=== PATIENT | female | born 1955 | race Caucasian/White ===

== ENCOUNTER 2018-01-30 08:51 | Inpatient (IN) | payer OTHER ==
[~2018-01-30] VITALS: Ht 162.6 cm; Wt 59.0 kg
[~2018-01-30 08:51] MED LIST: ACETAMINOPHEN-1 EAC4 PO; ASPIR 8181 MG PO; BIOTIN2500 MCG PO; CALCIUM500 MG PO; CHANTIX1 EACH PO; DIAZEPAM10 MG PO; FIORICET1 EA; FLOVENT DISKUS50 MCG INH; HYDROCODON-ACE1 EAC9; IRON18 MG PO; LISINOPRIL10 MG PO; NASONEX17 GM; OMEPRAZOLE40 MG PO; PALGIC4 MG PO; PANTOPRAZOLE SO40 MG PO; PROAIR HFA INH8.5 GM; PROZAC40 MG PO; SOMA350 MG PO; TIZANIDINE HCL6 MG PO; TOPIRAMATE50 MG PO; TRAZODONE HCL150 MG PO; TRIAMTERENE-HC1 EAC2; TYLENOL; VAGIFEM10 MCG PO; VITAMIN D-32000 UNIT PO; ZORVOLEX PO; ZYRTEC10 M3 PO
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
[2018-01-30] MEDS ORDERED: TRAZODONE HCL100 MG PO (09:16)
[2018-01-30] MEDS ORDERED: PANTOPRAZOLE SO40 MG PO (09:16)
[2018-01-30 09:42] LABS: BASOPHILS % 0.3 % (0.0-1.0); EOSINOPHILS % 0.3 % (0.0-6.0); HEMOGLOBIN 13.6 g/dL (12.0-16.0); LYMPHOCYTES # (AUTO) 1.4 (1.0-3.2); LYMPHOCYTES % 10.6 % (18.0-39.1); MEAN CORPUSCULAR HEMOGLOBIN 30.9 pg (28-32); MEAN CORPUSCULAR VOLUME 90.9 fL (81-99); MONOCYTES # (AUTO) 0.8 (0.2-0.8); MONOCYTES % 5.8 % (4.4-11.3); NEUTROPHILS # (AUTO) 11.2 (2.1-6.9); NEUTROPHILS % 82.6 % (38.7-80.0); PLATELET COUNT 235 x10e3/uL (140-360); RED CELL DISTRIBUTION WIDTH 13.3 % (11.7-14.4)
[2018-01-30 09:59] LABS: ALKALINE PHOSPHATASE 97 IU/L (40-150); BLOOD UREA NITROGEN 11 mg/dL (7-26); BUN/CREATININE RATIO 15 (6-25); CALCIUM 9.5 mg/dL (8.4-10.2); CARBON DIOXIDE 28 mmol/L (22-29); CHLORIDE 101 mmol/L (98-107); CREATINE KINASE 109 IU/L (29-168); CREATININE, SERUM 0.74 mg/dL (0.57-1.11); EST GLOMERULAR FILTRATION RATE > 60 ML/MIN (60-); GLUCOSE 118 mg/dL (74-118); SODIUM 139 mmol/L (136-145)
[2018-01-30 10:03] LABS: ALANINE AMINOTRANSFERASE < 6 IU/L (0-55)
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
[2018-01-30 11:01] LABS: BILIRUBIN,URINE NEGATIVE (NEGATIVE); KETONES,URINE NEGATIVE (NEGATIVE); LEUKOCYTE ESTERASE ,URINE NEGATIVE (NEGATIVE); NITRITE,URINE NEGATIVE (NEGATIVE); PROTEIN,URINE DIPSTICK NEGATIVE (NEGATIVE); URINE UROBILINOGEN 0.2 mg/dL (0.2 - 1)
--- NOTE | 2018-01-30 11:01 | Diagnostic Imaging Report ---
PROCEDURE: A single AP view of the chest. COMPARISON: None. INDICATIONS: PASSED OUT FINDINGS: Lines/tubes: None. Lungs: The lungs are well inflated and clear. There is no evidence of pneumonia or pulmonary edema. Pleura: There is no pleural effusion or pneumothorax. Heart and mediastinum: The heart and the mediastinum are unremarkable. Bones: No acute bony abnormality. Degenerative changes of the thoracic spine. IMPRESSION: No acute radiographic abnormality. Dictated by: Naveen Sanford M.D. on 01/30/2018 at 11:01 Electronically approved by: Naveen Sanford M.D. on 01/30/2018 at 11:01
[2018-01-30 11:02] LABS: CLARITY,URINE CLEAR (CLEAR); COLOR,URINE YELLOW (YELLOW)
[2018-01-30 11:14] LABS: EPITHELIAL CELLS,URINE RARE /LPF; MUCUS,URINE RARE (RARE)
[2018-01-30] MEDS: KETOROLAC TROMETHAMINE 30 MG/ML VIAL IV PRN ×2 (11:56→20:03)
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
[2018-01-30 17:55] VITALS: BP 155/95
--- NOTE | 2018-01-30 19:05 | History and Physical ---
CHIEF COMPLAINT: The patient had episode of passing out early this morning. HISTORY OF PRESENT ILLNESS: A 62-year-old pleasant white female with past medical history of multiple medical problems, was admitted at [facility] ER today with the above complaints. As per the patient, this morning she woke up and she felt hot with sweating and then the patient woke up, climbed downstairs, and at that time she felt nauseous and then after some time she found herself on the floor of the kitchen. She woke up on her own, unwitnessed episode by anybody else in the house. The patient woke up, stood up by her own and felt headache and generalized weakness. The patient called her boss at work to inform him that she is not going to show up at work. The boss advised her to go to the hospital. Boss called the patient's sister and the patient was brought in to the hospital. At present, the patient is lying comfortably in bed in no apparent distress. No chest pain, no shortness of breath, no nausea, vomiting, diarrhea, no abdominal pain, no loss of consciousness, no palpitations, no fever, no abnormal bleeding, no witnessed seizures. Complains of headaches. PAST MEDICAL HISTORY: 1. COPD. 2. Chronic fatigue syndrome. 3. Chronic low back pain. 4. Chronic cervical pain. 5. Status post right cerebral and carotid aneurysm stent in 2013. MEDICATIONS: Protonix 40 mg p.o. daily, 10 mg p.o. daily, ProAir HFA 2 puffs q.6 h. p.r.n. ALLERGIES: ORAL AND IV CONTRAST DYE. PAST SURGICAL HISTORY: 1. Hysterectomy. 2. Multiple breast biopsies, all benign, as per the patient. 3. Colon resection. 4. Right-sided/carotid aneurysm stents. SOCIAL HISTORY: Smoked 30+ years, quit smoking 2 months back. No alcohol, no illicit drug use. Lives with family. REVIEW OF SYSTEMS: As per HPI. PHYSICAL EXAMINATION GENERAL: The patient is alert, oriented x3 and in no apparent distress, playing video game on her I-pad. No chest pain. VITAL SIGNS: Temperature 98, pulse 70 per minute, respirations ___, blood pressure 127/90, saturation 96%. SKIN: No cyanosis. No icterus. No pallor. HEENT: Normocephalic, atraumatic. PERRLA. NECK: Soft and supple. No JVD. No thyromegaly or lymphadenopathy. LUNGS: Air entry bilaterally equal. No rales or rhonchi. HEART: S1 and S2 normal. No gallop or rub. ABDOMEN: Soft and nontender. Bowel sounds positive. UX DEVELOPER: Alert, awake and oriented x3. No focal deficits. EXTREMITIES: No cyanosis, clubbing or edema. Peripheral pulses are present. No calf pain. LABORATORY DATA: On admission to the ER, white count 13.5, hemoglobin 13.6, hematocrit 40, platelets 235,000. Sodium 139, potassium 4.0, chloride 101, bicarb 28, BUN 11, creatinine 0.7, glucose 118. LFTs noted. Urine shows blood 2+, RBCs 11-20. Chest x-ray shows no acute radiographic abnormalities. CT of brain showed no acute abnormalities, distal right M1 MCA segment stent in place. No change from previous head CT. CT of C-spine shows no cervical spine fracture or acute subluxation, degenerative changes with multilevel foraminal stenosis and advanced arthropathy, right cervical ICA and neurovascular stent in place, multinodular thyroid gland. ASSESSMENT 1. Syncope. 2. History of chronic obstructive pulmonary disease. 3. Chronic fatigue syndrome. 4. Chronic back pain. 5. Acid reflux. PLAN: Admit the patient to medical telemetry. Neurologic consultation with Dr. Singer. She has already seen the patient. Cardiology consultation with Dr. Etelvina Pollard. Will get 2D echo, carotid Doppler. Further care and treatment while the patient is in the hospital. Discussed win the patient in detail. Job#: [id number]
[2018-01-30 20:00] VITALS: BP 154/81
[2018-01-30 21:50] VITALS: BP 154/81
[2018-01-31] VITALS: BP 128/70
[2018-01-31] MEDS: KETOROLAC TROMETHAMINE 30 MG/ML VIAL IV PRN ×3 (03:15→16:55)
[2018-01-31 04:00] VITALS: BP 140/77
[2018-01-31 07:05] LABS: BASOPHILS # (AUTO) 0.1 (0.0-0.1); BASOPHILS % 0.8 % (0.0-1.0); EOSINOPHILS # (AUTO) 0.2 (0.0-0.4); EOSINOPHILS % 2.6 % (0.0-6.0); HEMATOCRIT 37.3 % (34.2-44.1); HEMOGLOBIN 12.4 g/dL (12.0-16.0); LYMPHOCYTES # (AUTO) 2.1 (1.0-3.2); LYMPHOCYTES % 27.4 % (18.0-39.1); MEAN CORPUSCULAR HEMOGLOBIN 30.6 pg (28-32); MEAN CORPUSCULAR HGB CONC 33.2 g/dL (31-35); MEAN CORPUSCULAR VOLUME 92.1 fL (81-99); MONOCYTES # (AUTO) 0.9 (0.2-0.8); MONOCYTES % 11.3 % (4.4-11.3); NEUTROPHILS # (AUTO) 4.4 (2.1-6.9); NEUTROPHILS % 57.4 % (38.7-80.0); PLATELET COUNT 222 x10e3/uL (140-360); RED BLOOD COUNT 4.05 x10e6/uL (3.6-5.1); RED CELL DISTRIBUTION WIDTH 13.2 % (11.7-14.4)
[2018-01-31 08:05] VITALS: BP 123/72
[2018-01-31 08:26] VITALS: BP 123/72
[2018-01-31] MEDS: PANTOPRAZOLE SOD 40 MG TABEC PO SCH ×2 (08:32→16:57)
[2018-01-31] MEDS ORDERED: ASPIRIN 81 MG ENTERIC COATED PO SCH (09:00)
[2018-01-31] MEDS ORDERED: LORATADINE 10 MG TAB PO SCH (09:00)
--- NOTE | 2018-01-31 12:14 | Consultation ---
DATE OF CONSULTATION: January 30, 2018 HISTORY OF PRESENT ILLNESS: Ms. Cruz is a 62-year-old woman with past medical history significant for chronic neck and low back pain secondary to degenerative disk disease who presented to the emergency center at [facility] on January 30, 2018 after experiencing a syncopal event earlier in the day. As stated above, the patient reports a long history of chronic neck and low back pain secondary to degenerative disk disease. The pain has progressively worsened over the past 3 weeks, especially the past 2 days. As a result of her worsening pain, the patient's sleep has been poor over the past few weeks. Last night she took morphine 30 mg by mouth once at approximately 11 p.m. in a effort to control her pain so she could get a full night's sleep. At approximately 5:50 in the morning on the day of admission, the patient was awakened by her dog who wanted to go outside. As soon as she stood from the bed, the patient became flushed, diaphoretic, clammy, and lightheaded. Ms. Cruz endorses nausea at this time as well. The patient proceeded down the stairs to let her dog into the backyard. She then sat on a swing close to the back door until she felt better. After sitting outside for several minutes, the patient decided she was well enough to proceed into the house. Ms. Cruz reports her next thought was "What was that loud sound?" Ms. Cruz quickly realized she was laying on the floor of her dining room looking at the legs of her dining room chairs. The patient does not recall standing from the swing outside, traveling the 2 feet or so to her back door, opening her back door, stepping inside her home, or closing the back door. Ms. Cruz believes she was unconscious for only a few seconds. Other than being confused as to why she was on the floor, the patient was not disoriented when she regained consciousness. The patient does not report tongue biting or bladder/bowel incontinence. She does report pain over the right side of the head where she fell. She endorses neck and back pain, but those are chronic. There were no bruises or abrasions on her trunk or any of her extremities. After regaining consciousness, the patient proceeded up the stairs to lay down on her bed. She notified her employer she would not be able to come to work. Her employer in turn notified her sister about Ms. Cruz's syncopal event, and her sister then drove to the patient's house and brought her to the emergency center at [facility] for further evaluation. Upon arrival in the emergency center, the patient was neurologically intact. Routine blood work was largely unremarkable. A CT of the brain without contrast was performed. It did not show evidence of recent large territorial ischemia, hemorrhage, mass or mass affect. Ms. Cruz will be admitted to [facility] for further evaluation and treatment. The patient does report a prior history of fainting spells. She states this led to a diagnosis of chronic fatigue syndrome. She further states her blood pressure medications were discontinued at this time. There is no known personal or family history of seizure disorder. REVIEW OF SYSTEMS: Flushing, clammy, diaphoretic, nausea, loss of consciousness, neck pain, low back pain. Otherwise, the 12-point review of systems is negative. PAST MEDICAL HISTORY: Prior history of hypertension, but no longer taking antihypertensive medications. Chronic fatigue syndrome. Cerebral artery aneurysm, status post repair. Right carotid artery atherosclerosis. Diverticulitis. PAST SURGICAL HISTORY: Partial hysterectomy, colectomy, carotid stent placement, repair of cerebral artery aneurysm. PAST HOSPITALIZATIONS: Child once, for surgeries and procedures as listed above. FAMILY HISTORY: The patient's paternal and maternal grandparents are . The patient's maternal grandmother from breast cancer. The patient's father is . He had prostate cancer, hypertension, glaucoma, and macular degeneration. The patient's mother is alive. She has hypertension, coronary artery disease, diverticulitis, and gallstones. The patient has 3 siblings, all of whom are living. The brother has degenerative disk disease. A sister has diverticulitis. A second sister has diverticulitis as well. The patient has one child, a son, who is healthy. SOCIAL HISTORY: The patient is . Ms. Cruz graduated high school and attending some college. She works in a day care. The patient quit smoking 3 weeks ago. She began smoking in her teens and smoked 1/2 pack of cigarettes per day. The patient does not report current alcohol use. She endorses remote use of marijuana, but does not report current recreational drug use. HOME MEDICATIONS: ProAir inhaler 2 puffs as needed for shortness of breath, Zyrtec 10 mg per mouth daily, Nasonex, Protonix 40 mg by mouth twice daily, trazodone 100 mg by mouth at bedtime, Tylenol 500 mg q.4 h. as needed for pain. ALLERGIES: NO KNOWN DRUG ALLERGIES. NO KNOWN FOOD ALLERGIES. NO KNOWN ALLERGY TO LATEX. THE PATIENT IS ALLERGIC TO IODINATED CONTRAST. PHYSICAL EXAMINATION VITAL SIGNS: Height 64 inches, weight 130 pounds, BMI 22.3 kg/meter squared, blood pressure 141/95 mmHg, pulse 76 beats per minute, respiratory rate 16 breaths per minute, oxygen saturation 96% on room air. GENERAL: The patient is awake and alert. Does not appear distressed. HEENT: Normocephalic and atraumatic. Pupils are equal, round and reactive to light. Moist mucous membranes. NECK: Supple. No appreciable thyromegaly. No appreciable carotid bruits. CARDIOVASCULAR: S1 and S2. Regular rate and rhythm. No murmurs, rubs or gallops. RESPIRATORY: Clear to auscultation bilaterally. No wheezes, rhonchi or rales. EXTREMITIES: The skin is warm and dry. No clubbing, cyanosis or edema. The posterior tibial and dorsalis pedis pulses are 2+ and symmetric. SKIN: No rashes or lesions. NEUROLOGIC: Memory/attention: The patient is awake and alert. Oriented to person, place, time, and situation. CRANIAL NERVES: Cranial nerve I: Not tested. Cranial nerves II, III, IV, : Pupils are equal and round, react briskly to light (from 4 mm to 2 mm). Extraocular movements intact. No nystagmus. Cranial nerve V: Sensation to light touch and pinprick is intact in the bilateral V1 through V3 distributions. Strength of the temporalis and masseter muscles is within normal limits. Cranial nerve VII: The face is symmetric, as are all facial movements. Strength is within normal limits. Cranial nerve VIII: Hearing is intact to finger rub bilaterally. Cranial nerve IX and X: The soft palate elevates equally and symmetrically. Cranial nerve XI: Normal strength of the bilateral sternocleidomastoid and trapezius muscles. Cranial nerve XII: The tongue protrudes midline and moves symmetrically from side to side. STRENGTH: Bulk is normal, and strength is 5/5 in the bilateral deltoids, biceps, triceps, wrist flexors and extensors, finger flexors and extensors, intrinsic hand muscles, hip flexors, knee flexors and extensors, ankle dorsiflexion and plantar flexion, and intrinsic foot muscles. Tone is normal. DTRs: Deep tendon reflexes are 2+ and symmetric at the triceps, biceps, brachioradialis, patellas, and Achilles. Plantar responses are flexor bilaterally. Absent clonus. SENSATION: Intact to light touch and pinprick in both arms and both legs. CEREBELLAR: Osalgt-gudy-zwtoln and heel-irving movements are intact without dysmetria or other impairment. Rapid alternating movements are intact. GAIT: Deferred. SPEECH: Spontaneous speech is normal without appreciable dysarthria or aphasia. Repetition is intact. INVOLUNTARY MOVEMENTS: None. PRONATOR DRIFT: None. LABORATORY DATA: Sodium 139, potassium 4.0, chloride 101, carbon dioxide 28, anion gap 14, BUN 11, creatinine 0.74, estimated GFR greater than 60, BUN to creatinine ratio 15, glucose 118, calcium 9.5, total bilirubin 0.6, AST 14, ALT less than 6, alkaline phosphatase 97, total protein 7.9, albumin 4.0, globulin 3.9, albumin to globulin ratio 1.0, creatinine kinase 109, CK MB 0.70, troponin I is 0.005. DIAGNOSTIC STUDIES: CT of the cervical spine without contrast 01/30/2018: No cervical spinal fracture or acute subluxation. Degenerative changes with multilevel foraminal stenosis and advanced facet arthrosis. Right cervical internal carotid artery endovascular stent in place. Multinodular thyroid gland with nodules which have increased in size since 2016. Recommend followup thyroid ultrasound if not recently performed. CT brain without contrast 01/30/2018: No acute ischemia, hemorrhage, mass or mass affect. Distal right M1 MCA segment stent is in place. Chest x-ray 01/30/2018: No acute radiographic abnormalities. ASSESSMENT AND PLAN: Ms. Cruz is a 62-year-old woman with past medical history as stated above who presents to [facility] following a syncopal event of uncertain etiology. The patient's neurological examination is nonfocal. Her laboratory data and diagnostic studies have been reviewed and are documented above. Based on the history provided by the patient, Ms. Cruz did experience a syncopal event. There is very little concern for seizure. An evaluation for syncope is recommended. Recommendations are as follows: 1. The patient will be admitted to [facility] with telemetry to evaluate for an underlying cardiac dysrhythmia. 2. An echocardiogram will be ordered to evaluate the structural and functional integrity of the patient's heart. 3. Bilateral carotid ultrasound with Doppler will be ordered to evaluate for restricted blood flow to the brain as the cause of syncope. 4. Orthostatic vital signs. 5. Defer treatment of the remaining medical comorbidities to the primary service. Thank you for this consultation. I will continue to follow the patient while she remains in the hospital. Time spent: 70 minutes. Job#: [id number] GH GIANNI
--- NOTE | 2018-01-31 14:28 | Consultation ---
DATE OF CONSULTATION: January 31, 2018 CARDIOLOGY CONSULTATION REQUESTING PHYSICIAN: Dr. Krishan Duff. REASON FOR CONSULTATION: Syncope. HISTORY OF PRESENT ILLNESS: This is a 62-year-old woman with a history of hypertension, chronic neck and back pain, and chronic fatigue syndrome, who presented with complaints of syncope. The patient reports that she felt hot and flushed this morning when she woke up. She went down the stairs to let her dog out but, while coming down the stairs, felt nauseated and as if she was losing her balance. She got outside, but when she got up to walk back inside, she woke up on the kitchen floor. She denied any preceding chest pain or shortness of breath. This was unwitnessed, but she does endorse palpitations. She denied any edema, orthopnea or PND. Due to this, she presented to the ER for further evaluation. REVIEW OF SYSTEMS: Negative except as per HPI. PAST MEDICAL HISTORY 1. Hypertension. 2. COPD. 3. Chronic fatigue syndrome. 4. Chronic neck and back pain. 5. History of cerebral and carotid aneurysm, status post repair. PAST SURGICAL HISTORY 1. Partial colectomy for diverticulosis. 2. Hysterectomy. 3. Cerebral and carotid aneurysm repairs. ALLERGIES: IODINE. MEDICATIONS: Please see medication list. SOCIAL HISTORY: She recently quit smoking. She smoked 1 pack a day for over 40 years. FAMILY HISTORY: Noncontributory. PHYSICAL EXAMINATION VITAL SIGNS: Temperature 96.7 degrees, pulse 67, respiratory rate 20, blood pressure 123/72, oxygen saturation 95% on room air. GENERAL: A well-developed, well-nourished woman in no acute distress. HEENT: Normocephalic, atraumatic. Pupils equal, no scleral icterus. NECK: Supple. No thyromegaly or cervical lymphadenopathy, no carotid bruits. LUNGS: Clear to auscultation bilaterally. No wheezes or crackles. CARDIOVASCULAR: Normal rate, regular rhythm. No murmur. Normal S1 and S2. ABDOMEN: Soft, nontender. EXTREMITIES: No edema. NEURO: Nonfocal exam. LABS: WBC 7.67, hemoglobin 12.4, hematocrit 37.3, platelets 222. Sodium 139, potassium 4, chloride 101, CO2 28, BUN 11, creatinine 0.74. EKG: Normal sinus rhythm. Possible left atrial enlargement. CT BRAIN: No acute abnormalities. Distal right M1 MCA segment stent in place. No changes from the previous head CT of April 12, 2017. CHEST X-RAY: No acute radiographic abnormality. IMPRESSION 1. Syncope. 2. Hypertension. 3. History of cerebral and carotid aneurysm stents. 4. Chronic fatigue syndrome. 5. Chronic neck and back pain. RECOMMENDATIONS: Echocardiogram and carotid Dopplers have been ordered. We will review the images. Monitor patient on telemetry to evaluate for any arrhythmias that could explain her symptoms. Check orthostatic vitals. Thank you for this consult. We will continue to follow. Job#: [id number] EV
--- NOTE | 2018-03-06 19:34 | Discharge Summary ---
CHIEF COMPLAINT: Syncope and collapse. FINAL DIAGNOSES 1. Syncope. 2. Chronic back pain. 3. Chronic obstructive pulmonary disease. DISPOSITION: Home. This 62-year-old female, with history of multiple medical problems, presented to the ER, having issue of an episode of passing out the morning of admission. States that she woke up feeling hot, sweating. Went downstairs and felt somewhat nauseated. After a period of time, she found herself on the floor of the kitchen. Woke up on her own. The episode was unwitnessed. Post episode, she had a headache and complained of generalized weakness. Brought to the ER. Patient was evaluated in the ER. Noted to have a temperature of 98, pulse 70, BP 127/90. Chest was unremarkable. Heart was unremarkable. Underwent studies and evaluation in the ER. Admitted to the facility for evaluation regarding issues of syncope. History of chronic obstructive pulmonary disease, chronic fatigue syndrome, chronic back pain, acid reflux. Will be obtaining a neurology follow and a cardiology follow. From a neurology standpoint, following her admission to the floor, she was reviewed by Dr. Singer. Following her evaluations, impression was made of a single episode of uncertain etiology. Neurological examination has been nonfocal. States that there is very little concern for seizure. She was on the med/surg floor receiving a cardiac diet. Vital signs were stable. She was on IV fluids and receiving aspirin 81 mg daily. Laboratory studies were showing stable electrolytes, stable kidney functions, glucose 118. CBC was stable. She was undergoing her workup. Her daily medications were then being applied. Underwent review by Dr. Singer. She was cleared for discharge and released on 01/31/2018 to home in stable condition. EKG showed normal sinus rhythm, possible left atrial enlargement. Echocardiogram revealed ejection fraction of approximately 50%. No pericardial effusion. Carotid studies showed no hemodynamically significant stenosis in the carotid system bilaterally. She was released home. Placed on a cardiac diet. No equipment or supplies necessary. No drains or Sánchez needed. Activity level is as tolerated. She will be following up with me in my office in the next 3 to 5 days. She will be returning to Dr. Singer's office as needed. She will be continued on: 1. ProAir HFA inhaler, inhalation every 6 to 8 hours as needed. 2. Zyrtec 10 mg daily. 3. Nasonex 17-gram spray daily as needed. 4. Protonix 40 mg twice a day. 5. Trazodone 100 mg nightly. 6. Tylenol 500 mg every 4 hours as needed for pain. If she has any continued syncopal episodes, she will be contacting me in my office immediately or she will be reporting back to the emergency room. Dictated by: ORBE Tomas JENNIFER HARVEY MD Job#: [id number]
== END 2018-01-31 17:48 | disposition home or self-care (01) | DRG 312 ==
LOC: ER 08:51 → ERHOLD 13:39 → MED/SURG 16:39
PROVIDERS: ADMIT Internal Medicine; ATTEND Internal Medicine
DX: R55 Syncope and collapse (principal); J44.9 Chronic obstructive pulmonary disease, unspecified; I10 Essential (primary) hypertension; R53.82 Chronic fatigue, unspecified; Z86.79 Personal history of other diseases of the circulatory system; M54.5 Low back pain; M50.30 Other cervical disc degeneration, unspecified cervical region; K21.9 Gastro-esophageal reflux disease without esophagitis
CPT/HCPCS: 36415; 70450; 71045; 72125; 80053; 81001; 82550; 82553; 84484; 85025; 93005; 93306; 93880; 97139; 99284; J1885

== ENCOUNTER → 2018-09-30 | Outpatient (CLI) | payer OTHER ==
[~2018-09-30] MED LIST changes: +CYCLOBENZAPRINE10 MG PO; +FLUTICASONE PRO16 GM; +LOSARTAN POTAS100 MG PO; +NEXIUM20 MG PO; +NORCO 10-325 T1 EACH PO; +TRAZODONE HCL100 MG PO; +TRAZODONE HCL50 MG PO
--- NOTE | 2018-10-01 08:47 | Diagnostic Imaging Report ---
#[id number] - MGSCRBIL #BILATERAL DIGITAL SCREENING MAMMOGRAM WITH CAD: 09/30/2018 CLINICAL: Routine screening. Comparison is made to exams dated: 06/07/2017, 10/12/2015 and 01/07/2013 mammogram - [facility]. Current study contains 4 films. The tissue of both breasts is heterogeneously dense. This may lower the sensitivity of mammography. Current study was also evaluated with a Computer Aided Detection (CAD) system. There are benign calcifications in both breasts. There also are benign densities in both breasts that are unchanged compared compared to multiple prior studies. Additionally there are post operative findings in both breasts with multiple scar markers present. No significant masses, calcifications, or other findings are seen in either breast. There has been no significant interval change. IMPRESSION: BENIGN There is no mammographic evidence of malignancy. A 1 year screening mammogram is recommended. The patient will be notified by letter of the results. Carlo King Jr., D.O. cw/:09/30/2018 11:40:41 Cloth Reeler: Donya CONRAD(R)(M), [facility] letter sent: Compared to Prior B9 Mammogram BI-RADS: 2 Benign
== END ==
LOC: MAMMO 09:32
PROVIDERS: ATTEND Internal Medicine
DX: Z12.31 Encounter for screening mammogram for malignant neoplasm of breast (principal)
CPT/HCPCS: 77067

== ENCOUNTER → 2018-10-15 | Outpatient (CLI) | payer OTHER ==
--- NOTE | 2018-10-15 13:50 | Diagnostic Imaging Report ---
EXAM: CT Chest WITHOUT contrast INDICATION: Smoker, shortness of breath, chest tightness COMPARISON: None. TECHNIQUE: The Chest was scanned utilizing a multidetector helical scanner without the use of IV contrast. Coronal and sagittal reformations were obtained. IV CONTRAST: None COMPLICATIONS: None RADIATION DOSE: Total DLP: 308 mGy*cm Estimated effective dose: (DLP x 0.015 x size factor) mSv CTDIvol has been reviewed. It is below the limits set by the Radiation Protocol Committee (RPC). Appropriate CT dose reduction techniques were utilized. FINDINGS: Lines and Tubes: None. Lower Neck: Bilateral thyroid nodules. Heart and Great Vessels: The aorta and main pulmonary artery measure 37 and 28 mm. respectively. No pericardial effusion. Mild coronary vascular calcifications. Lymph Nodes: Small mediastinal lymph nodes not distinctly enlarged by size criteria. The hilar regions are sub-optimally evaluated given lack of IV contrast. Lungs: Mild to moderate biapical scarring with no pneumothorax or pleural effusion. Mild atelectasis. Trachea and central bronchi are unremarkable. Minimal centrilobular emphysematous change noted. 4 mm groundglass nodule right upper lobe series 3 image 34 4-mm subpleural nodule right image 84 2-mm groundglass nodule left upper lobe series 3 image 38 Upper abdomen: No acute findings. Bones and Soft Tissues: No acute findings. IMPRESSION: 1. Minimal centrilobular emphysematous changes with a few tiny pulmonary nodules as above. One year follow-up. 2. Thyroid nodules. Ultrasound recommended. Signed by: Dr. Fran Escobar MD on 10/15/2018 1:46 PM
== END ==
LOC: CT 09:39
PROVIDERS: ATTEND Internal Medicine
DX: Z12.2 Encounter for screening for malignant neoplasm of respiratory organs (principal); Z87.891 Personal history of nicotine dependence
CPT/HCPCS: 71250

== ENCOUNTER → 2018-10-16 | Day surgery (SDC) | payer OTHER ==
[2018-10-15 11:20] LABS: BASOPHILS # (AUTO) 0.1 (0.0-0.1); BASOPHILS % 0.8 % (0.0-1.0); EOSINOPHILS # (AUTO) 0.3 (0.0-0.4); EOSINOPHILS % 4.2 % (0.0-6.0); HEMATOCRIT 40.4 % (34.2-44.1); HEMOGLOBIN 13.3 g/dL (12.0-16.0); LYMPHOCYTES # (AUTO) 3.5 (1.0-3.2); LYMPHOCYTES % 46.5 % (18.0-39.1); MEAN CORPUSCULAR HEMOGLOBIN 30.2 pg (28-32); MEAN CORPUSCULAR HGB CONC 32.9 g/dL (31-35); MEAN CORPUSCULAR VOLUME 91.6 fL (81-99); MONOCYTES # (AUTO) 0.6 (0.2-0.8); MONOCYTES % 7.8 % (4.4-11.3); NEUTROPHILS % 40.2 % (38.7-80.0); PLATELET COUNT 240 x10e3/uL (140-360); RED BLOOD COUNT 4.41 x10e6/uL (3.6-5.1); RED CELL DISTRIBUTION WIDTH 12.9 % (11.7-14.4)
[2018-10-15 11:31] LABS: INR 0.82; PROTHROMBIN TIME 12.1 seconds (11.9-14.5)
[2018-10-15 11:40] LABS: ALANINE AMINOTRANSFERASE 7 IU/L (0-55); ALBUMIN/GLOBULIN RATIO 1.1 (0.8-2.0); ALKALINE PHOSPHATASE 103 IU/L (40-150); ANION GAP 13.6 mmol/L (8-16); BLOOD UREA NITROGEN 14 mg/dL (7-26); BUN/CREATININE RATIO 18 (6-25); CALCIUM 9.6 mg/dL (8.4-10.2); CARBON DIOXIDE 27 mmol/L (22-29); CHLORIDE 105 mmol/L (98-107); CREATININE, SERUM 0.76 mg/dL (0.57-1.11); EST GLOMERULAR FILTRATION RATE > 60 ML/MIN (60-); GLUCOSE 90 mg/dL (74-118); POTASSIUM 4.6 mmol/L (3.5-5.1); SODIUM 141 mmol/L (136-145)
[~2018-10-16] VITALS: Ht 162.6 cm; Wt 65.8 kg
[~2018-10-16] MED LIST changes: +BENZOCAINE 20% SPR 60 ML CAN ONE; +FENTANYL CITRATE/PF 100MCG/2 ML INJ ONE; +LIDOCAINE HCL 2% LOCAL INJ 5 ML SDV VIAL INJ ONE; +MIDAZOLAM HCL 2 MG/2 ML VIAL ONE; +PROPOFOL IV EMULSION 10 MG/ML 20 ML VIAL ONE; +SODIUM CHLORIDE 0.9% 1000ML 1,000 ML ONE
--- OUTSIDE RECORDS SUMMARY | 2018-10-16 06:28 | XMS REPORT | Clinical Summary ---
Author Author [facility] Address Unknown Phone Unavailable Care Team Providers Care Publishing Director Name Role Phone Stephan Armenta DO PCP Allergies Comments Active Allergy Reactions Severity Noted Date IV iodine Iodine Anaphylaxis High 02/16/2017 Medications End Date Status Medication Sig Dispensed Refills Start Date Active acetaminophen-codeine Take 1 tablet 0 (TYLENOL WITH CODEINE #4) by mouth 300-60 mg per tablet every 4 (four) hours as needed for moderate pain. Active pantoprazole (PROTONIX) Take 40 mg by 0 40 MG EC tablet mouth 2 (two) times a day. Active ferrous sulfate 325 (65 Take 325 mg 0 FE) MG tablet by mouth 3 (three) times a day with meals. Active tiZANidine (ZANAFLEX) 4 Take 4 mg by 0 MG tablet mouth every 6 (six) hours as needed for muscle spasms. Active diazePAM (VALIUM) 5 MG Take 5 mg by 0 tablet mouth 2 (two) times a day. Active Problems Not on file Social History Date Tobacco Use Types Packs/Day Years Used Heavy Tobacco Smoker 1 40 Tobacco Cessation: Ready to Quit: No; Counseling Given: Yes Alcohol Use Drinks/Week oz/Week Comments No Sex Assigned at Date Recorded Not on file Industry Job Start Date Occupation Not on file Not on file Not on file Travel End Travel History Travel Start No recent travel history available. Last Filed Vital Signs Not on file Plan of Treatment Health Maintenance Due Date Last Done Comments CERVICAL CANCER SCREENING 1977 BREAST CANCER SCREENING 2006 COLON CANCER SCREENING 2006 SHINGRIX VACCINE (1 of 2) 2006 ZOSTER VACCINE 2016 INFLUENZA VACCINE 06/11/2018 Results Not on fileafter 10/15/2017 Insurance Payer Benefit Subscriber ID Type Phone Address Plan / Group TPL TPL-MED-DA xxxxxxxxxx TPL TA FRAGA EXCHANGE FRAGA xxxxxxxxxx Exchange [employer] E EXCHANGE Advance Directives Patient has advance care planning documents on file. For more information, amparo manley contact: Mani Narayan [address] [place] [address]
--- OUTSIDE RECORDS SUMMARY | 2018-10-16 06:28 | XMS REPORT ---
Author Author [facility] Address Unknown Phone Unavailable Care Team Providers Care Intelligence Operations Specialist Name Role Phone JENNIFER HARVEY Unavailable Unavailable Florence TAYLOR Unavailable Unavailable Problems This patient has no known problems. Allergies, Adverse Reactions, Alerts This patient has no known allergies or adverse reactions. Medications This patient has no known medications. Results Test Description Test Time Test Comments Text Results Atomic Results Result Comments CT CHEST WO 2018-10-15 13:42:00 [place] [address] Patient Name: CURT APRTIDA MR #: [id number] : 1955 Age/Sex: 63/F Req #: [id number] Adm Physician: Ordered by: JENNIFER HARVEY MD Report #: [id number] Location: CT Room/Bed: Procedure: [id number] CT/CT CHEST WO Exam Date: 10/15/18 Exam Time: 1020 REPORT STATUS: Signed EXAM: CT Chest WITHOUT contrast INDICATION: Smoker, shortness of breath, chest tightness COMPARISON: None. TECHNIQUE: The Chest was scanned utilizing a multidetector helical scanner without the use of IV contrast. Coronal and sagittal reformations were obtained. IV CONTRAST: None COMPLICATIONS: None RADIATION DOSE: Total DLP: 308 mGy*cm Estimated effective dose: (DLP x 0.015 x size factor) mSv CTDIvol has been reviewed. It is below the limits set by the Radiation Protocol Committee (RPC). Appropriate CT dose reduction techniques were utilized. FINDINGS: Lines and Tubes: None. Lower Neck: Bilateral thyroid nodules. Heart and Great Vessels: The aorta and main pulmonary artery measure 37 and 28 mm. respectively. No pericardial effusion. Mild coronary vascular calcifications. Lymph Nodes: Small mediastinal lymph nodes not distinctly enlarged by size criteria. The hilar regions are sub-optimally evaluated given lack of IV contrast. Lungs: Mild to moderate biapical scarring with no pneumothorax or pleural effusion. Mild atelectasis. Trachea and central bronchi are unremarkable. Minimal centrilobular emphysematous change noted. 4 mm groundglass nodule right upper lobe series 3 image 34 4-mm subpleural nodule right image 84 2-mm groundglass nodule left upper lobe series 3 image 38 Upper abdomen: No acute findings. Bones and Soft Tissues: No acute findings. IMPRESSION: 1. Minimal centrilobular emphysematous changes with a few tiny pulmonary nodules as above. One year follow-up. 2. Thyroid nodules. Ultrasound recommended. Signed by: Dr. Sabrina Escobar MD on 10/15/2018 1:46 PM Dictated By: SABRINA ESCOBAR MD 1346 Transcribed By: JACQUELINE on 10/15/18 1346 COPY TO: JENNIFER HARVEY MD MAMMOGRAPHY DIGITAL SCR BILAT 2018-09-30 10:14:00 [place] [address] Patient Name: CURT PARTIDA MR #: [id number] : 1955 Age/Sex: 63/F Req #: [id number] Adm Physician: Ordered by: JENNIFER HARVEY MD Report #: [id number] Location: [facility] Room/Bed: Procedure: [id number] MG/MAMMOGRAPHY DIGITAL SCR BILAT Exam Date: 09/30/18 Exam Time: 0936 REPORT STATUS: Signed #[id number] - [id number] #BILATERAL DIGITAL SCREENING MAMMOGRAM WITH CAD: 09/30/2018 CLINICAL: Routine screening. Comparison is made to exams dated: 06/07/2017, 10/12/2015 and 01/07/2013 mammogram - [facility]. Current study contains 4 films. The tissue of both breasts is heterogeneously dense. This may lower the sensitivity of mammography. Current study was also evaluated with a Computer Aided Detection (CAD) system. There are benign calcifications in both breasts. There also are benign densities in both breasts that are unchanged compared compared to multiple prior studies. Additionally there are post operative findings in both breasts with multiple scar markers present. No significant masses, calcifications, or other findings are seen in either breast. There has been no significant interval change. IMPRESSION: BENIGN There is no mammographic evidence of malignancy. A 1 year screening mammogram is recommended. The patient will be notified by letter of the alexy nelson. Carlo King Jr., D.O. cw/:09/30/2018 11:40:41 Ui Programmer: Donya CONRAD(R)(Ruth), [facility] letter sent: Compared to Prior B9 Mammogram BI-RADS: 2 Benign Dictated By: CARLO KING DO 1140 Transcribed By: KEELEY on 09/30/18 1140 COPY TO: JENNIFER HARVEY MD CHEST SINGLE (PORTABLE) [place] [address] Patient Name: CURT PARTIDA MR #: [id number] : 1955 Age/Sex: 62/F Req #: [id number] Adm Physician: Ordered by: YOJANA TAYLOR MD Report #: [id number] Location: ER Room/Bed: Procedure: [id number] DX/CHEST SINGLE (PORTABLE) Exam Date: 01/30/18 Exam [...] at 11:01 Dictated By: SHALA CORDERO MD 1101 Transcribed By: MANASA on 01/30/18 110 COPY TO: YOJANA BUI MD CT BRAIN WO [place] [address] Patient Name: CURT PARTIDA MR #: [id number] : 1955 Age/Sex: 62/F Req #: [id number] Adm Physician: Ordered by: YOJANA TAYLOR MD Report #: [id number] Location: ER Room/Bed: Procedure: [id number] CT/CT BRAIN WO Exam Date: 01/30/18 Exam [...] Patent foramen magnum. No Chiari one malformation. IMPRESSION: 1. No acute abnormalities. 2. Distal right M1 MCA segment stent in place. 3. No changes from the previous head CT of 04/12/2017. Signed by: Dr. Taina Tejada M.D. on 01/30/2018 10:36 AM Dictated By: TAINA TEJADA MD 1036 Transcribed By: JACQUELINE on 01/30/18 1036 COPY TO: YOJANA TAYLOR MD CT CERVICAL SPINE WO [place] [address] Patient Name: CURT PARTIDA MR #: [id number] : 1955 Age/Sex: 62/F Req #: [id number] Adm Physician: Ordered by: YOJANA TAYLOR MD Report #: [id number] Location: Room/Bed: Procedure: [id number] CT/CT CERVICAL SPINE WO Exam Date: 01/30/18 Exam Time: 1000 REPORT STATUS: Signed Exam: Cervical spine CT without IV contrast History: Trauma, passed out Comparison studies: Included spine from soft tissue neck CT [...] stenosis. Moderate right and mild left foraminal s tenosis due to severe right and moderate left facet arthrosis. Incidental small anterior disc osteophyte complex. C6-C7: Mildly degenerated disc. Mild canal stenosis due [...] thyroid ultrasound if not recently performed. Signed by: Dr. Taina Tejada M.D. on 01/30/2018 10:50 AM Dictated By: TAINA TEJADA MD 1050 Transcribed By: JACQUELINE on 01/30/18 1050 COPY TO: YOJANA TAYLOR MD
--- OUTSIDE RECORDS SUMMARY | 2018-10-16 06:28 | XMS REPORT | Clinical Summary ---
Author Author [facility] Address Unknown Phone Unavailable Care Team Providers Care Dental Office Manager Name Role Phone Stephan Armenta PCP Allergies Comments Active Allergy Reactions Severity Noted Date IV Dye Iodine And Iodide Swelling High 01/06/2014 Containing Products Medications End Date Status Medication Sig Dispensed Refills Start Date Active omeprazole (PRILOSEC) 10 Take 10 mg by 0 MG capsule mouth daily. Active topiramate (TOPAMAX) 50 Take 150 mg 0 MG tablet by mouth nightly. 3 tabs=total 150 mg Active traZODone (DESYREL) 150 Take 75 mg by 0 MG tablet mouth nightly. Active diazepam (VALIUM) 5 MG Take 5 mg by 0 tablet mouth 2 (two) times daily. Active albuterol, refill, 90 Inhale 2 0 mcg/actuation Aero puffs by mouth via inhaler daily. Active Missing or Non-Formulary Biotin 0 Medication 5000mcg Active Missing or Non-Formulary Calcium 600mg 0 Medication daily Active Missing or Non-Formulary D3 1000 iu 0 Medication daily Active aspirin 81 MG EC tablet Take 81 mg by 0 mouth daily. Active acetaminophen-codeine Take 1 tablet 0 (TYLENOL #4) 300-60 mg by mouth per tablet every 4 (four) hours as needed for Pain. Active TiZANidine (ZANAFLEX) 6 Take 6 mg by 0 MG capsule mouth every 8 (eight) hours. Active cetirizine (ZYRTEC) 10 MG Take 10 mg by 0 tablet mouth daily. Active Problems Problem Noted Date Aneurysm of right carotid artery 01/27/2014 Overview: Dissecting aneurysm right cervical segment Cerebral aneurysm 01/15/2014 Overview: Right middle cerebral artery Hypertension 01/15/2014 Asthma 01/15/2014 Depression with anxiety 01/15/2014 Chronic pain 01/15/2014 Family History Medical History Relation Name Comments Unremarkable Brother COPD Father Cancer Father Heart disease Mother Unremarkable Sister Unremarkable Son Relation Name Status Comments Brother Alive Father Mother Alive Sister Alive Son Alive Social History Date Tobacco Use Types Packs/Day Years Used Current Every Day Smoker Cigarettes 0.5 30 Smokeless Tobacco: Never Used Tobacco Cessation: Ready to Quit: Yes; Counseling Given: Yes Alcohol Use Drinks/Week oz/Week Comments Yes rarely special occassions Sex Assigned at Date Recorded Not on file Industry Job Start Date Occupation Not on file Not on file Not on file Travel End Travel History Travel Start No recent travel history available. Last Filed Vital Signs Not on file Plan of Treatment Health Maintenance Due Date Last Done Comments INFLUENZA VACCINE 08/11/2018 Results Not on fileafter 10/15/2017 Insurance Payer Benefit Subscriber ID Type Phone Address Plan / Group [facility] [place] HMO xxxxxxxxx HMO/POS CARE POS SELECT CHOICE Advance Directives Patient has advance care planning documents, and code status on file. For more i nformation, please contact: [address] [address] Date Inactivated Comments Code Status Date Activated 04/24/2016 4:54 PM Full Code 04/24/2016 8:52 AM This code status was determined by: Patient 08/30/2014 7:40 PM Full Code 08/30/2014 12:47 PM This code status was determined by: Patient 02/12/2014 4:15 PM All possible means of support, including: cardiac massage, mechanical ventilation, and defibrillation will be used to support life. Code ONE 02/10/2014 4:20 PM 01/15/2014 7:44 PM All possible means of support, including: cardiac massage, mechanical ventilation, and defibrillation will be used to support life. Code ONE 01/15/2014 12:22 PM
[2018-10-16 07:09] VITALS: BP 128/80
[2018-10-16 07:11] VITALS: BP 128/80
[2018-10-16 09:04] VITALS: BP 119/74
[2018-10-16 09:19] VITALS: BP 132/82
[2018-10-16 09:34] VITALS: BP 144/76
[2018-10-16 09:49] VITALS: BP 133/83
== END | disposition home or self-care (01) ==
LOC: CATH LAB 06:26
PROVIDERS: ATTEND Internal Medicine
DX: Q24.9 Congenital malformation of heart, unspecified (principal); I10 Essential (primary) hypertension; I72.0 Aneurysm of carotid artery; R55 Syncope and collapse; R07.9 Chest pain, unspecified; J45.909 Unspecified asthma, uncomplicated; Z91.041 Radiographic dye allergy status; F17.210 Nicotine dependence, cigarettes, uncomplicated; Z01.812 Encounter for preprocedural laboratory examination; Z82.49 Family history of ischemic heart disease and other diseases of the circulatory system
CPT/HCPCS: 36415; 80053; 85025; 85610; 93315; 93320; 93325; J2001; J2250; J2704; J7030; 93312

== ENCOUNTER → 2019-01-28 | Outpatient (CLI) | payer OTHER ==
[~2019-01-28] MED LIST changes: -BENZOCAINE 20% SPR 60 ML CAN ONE; -FENTANYL CITRATE/PF 100MCG/2 ML INJ ONE; -LIDOCAINE HCL 2% LOCAL INJ 5 ML SDV VIAL INJ ONE; -MIDAZOLAM HCL 2 MG/2 ML VIAL ONE; -PROPOFOL IV EMULSION 10 MG/ML 20 ML VIAL ONE; -SODIUM CHLORIDE 0.9% 1000ML 1,000 ML ONE
--- NOTE | 2019-01-28 13:20 | Diagnostic Imaging Report ---
Exam: Right hand radiographs-3 views History: Right hand pain. Comparison: None. Findings: There is diffuse osteopenia. No evidence of acute fracture or malalignment. There is mild deformity to the base of the first metacarpal with sclerosis. No overlying soft tissue edema. There is a well-corticated bony fragment adjacent to the scaphoid, likely sequela of prior trauma There are moderate degenerative changes of the first carpometacarpal joint and scattered mild degenerative changes elsewhere. Impression: No evidence of acute displaced fracture. Mild deformity to the base of first metacarpal with sclerosis without overlying edema. This may reflect subacute or remote trauma. This can be correlated with clinical history and point tenderness at this location. Diffuse osteopenia. Moderate first carpometacarpal joint osteoarthritis. Signed by: Dr. Ken Linder MD on 01/28/2019 1:17 PM
--- NOTE | 2019-01-28 13:23 | Diagnostic Imaging Report ---
Exam: Left knee radiographs-4 views History: Left knee pain. Comparison: None. Findings: No evidence of acute fracture or malalignment. There are mild tricompartmental degenerative changes. Trace suprapatellar joint effusion. There is diffuse osteopenia. Impression: No acute osseous abnormality. Mild left knee osteoarthritis. Trace suprapatellar joint effusion. Diffuse osteopenia. Signed by: Dr. Ken Linder MD on 01/28/2019 1:19 PM
== END ==
LOC: RAD 12:37
PROVIDERS: ATTEND Anesthesiology Pain Medicine
DX: M79.641 Pain in right hand (principal); M25.562 Pain in left knee

== ENCOUNTER → 2019-02-26 | Outpatient (CLI) | payer OTHER | LOC: US 10:06 | PROVIDERS: ATTEND Anesthesiology Pain Medicine | DX: E04.2 Nontoxic multinodular goiter (principal) | CPT/HCPCS: 76536 ==

== ENCOUNTER → 2019-03-20 | Outpatient (CLI) | payer OTHER ==
--- NOTE | 2019-03-20 13:06 | Diagnostic Imaging Report ---
Date and Time: 03/20/2019 Procedure: Ultrasound-guided fine-needle aspiration right thyroid nodule lie detector operator: Dr. Payan Pre-operative diagnosis: Suspicious right thyroid nodule Post-operative diagnosis: Suspicious right thyroid nodule Conscious Sedation: None The patient's heart rate and pulse oximetry were continuously monitored by the interventional radiology nurse. Blood pressure was monitored at 5 minute intervals. Additional Medications: Lidocaine 1% for local anesthesia Estimated blood loss: Minimal Blood products administered: None Consultation: No immediate Specimens: Fine-needle aspiration specimens x3 Implants: None DISCUSSION: Informed consent was obtained and documented in the medical record after discussion of risks and benefits. The patient was placed in supine position on the sonographic table. Preliminary sonographic evaluation confirmed presence of a mixed cystic and solid nodule in the right lobe of the thyroid. A suitable percutaneous approach was identified and the cervical region was then prepped and draped in the standard sterile fashion. 1% lidocaine was infiltrated into the skin and subcutaneous tissues for local anesthesia. Then under continuous sonographic guidance, a total of 3 fine-needle aspiration specimens were obtained using 25-gauge needles. Specimens were submitted to on-site cytopathology personnel and adequacy was confirmed. At the conclusion of sampling a sterile dressing was applied. The patient tolerated the procedure well without immediate complication. FINDINGS: Suspicious mixed cystic and solid right thyroid nodule IMPRESSION: Successful ultrasound-guided fine-needle aspiration of a right thyroid nodule as above. Signed by: Dr. Stephan Payan M.D. on 03/20/2019 1:02 PM
== END ==
LOC: US 11:13
PROVIDERS: ATTEND Otolaryngology
DX: E04.2 Nontoxic multinodular goiter (principal)
CPT/HCPCS: 10005; 88172; 88173

== ENCOUNTER → 2019-09-02 | Outpatient (CLI) | payer OTHER ==
--- NOTE | 2019-09-02 15:26 | Diagnostic Imaging Report ---
Abdomen, 1 view. History: Abdominal bloating. Findings: Air is scattered throughout nondilated small and large bowel. There is moderate retained stool. Calcified phleboliths are noted in the pelvis. The osseous structures are intact. IMPRESSION: Non-specific bowel gas pattern. Signed by: Zain Parker on 09/02/2019 3:23 PM
== END ==
LOC: RAD 14:29
PROVIDERS: ATTEND Internal Medicine
DX: R14.0 Abdominal distension (gaseous) (principal)
CPT/HCPCS: 74018

== ENCOUNTER → 2019-10-01 | Outpatient (CLI) | payer OTHER ==
--- NOTE | 2019-10-01 12:22 | Diagnostic Imaging Report ---
EXAMINATION: ANKLE 3 + VIEWS RIGHT INDICATION: Right ankle pain COMPARISON: None FINDINGS: No acute fracture or dislocation. Alignment is anatomic. No substantial joint effusion. The soft tissues appear unremarkable. Minimal Achilles enthesopathy. IMPRESSION: Acute osseous injury. Signed by: Jaron Shell MD on 10/01/2019 12:19 PM
--- NOTE | 2019-10-01 14:27 | Diagnostic Imaging Report ---
EXAM: CT Chest WITHOUT intravenous contrast 10/01/2019 10:31 AM INDICATION: Shortness of breath, lung nodule COMPARISON: Chest CT of 10/15/2018 TECHNIQUE: Chest was scanned utilizing a multidetector helical scanner from the lung apex through the level of the adrenal glands without administration of IV contrast. Coronal and sagittal reformations were obtained. Routine protocol was performed. IV CONTRAST: None RADIATION DOSE: Total DLP: 118.6 mGy*cm. Dose modulation, iterative reconstruction, and/or weight based adjustment of the mA/kV was utilized to reduce the radiation dose to as low as reasonably achievable. COMPLICATIONS: None FINDINGS: LINES/ TUBES: None. LUNGS AND AIRWAYS: The lungs are unremarkable. Right middle lobe 5mm nodule appears unchanged. No focal consolidation or pulmonary edema. PLEURA: The pleural spaces are clear. HEART AND MEDIASTINUM: Multinodular thyroid gland, better evaluated on prior dedicated thyroid ultrasound of 02/26/2019. No supraclavicular, mediastinal, or hilar lymphadenopathy. The heart is not enlarged. No pericardial effusion. Scattered atherosclerotic calcifications of the coronary arteries and aorta. UPPER ABDOMEN: Limited non-contrast views of the upper abdomen show no abnormality within the visualized liver, spleen, pancreas, or kidneys. The adrenal glands are normal. BONES: The visualized bony thorax is within normal limits. SOFT TISSUES: Unremarkable. IMPRESSION: Unchanged pulmonary nodules. No new suspicious pulmonary nodules. No further imaging follow-up required. Signed by: Jaron Shell MD on 10/01/2019 2:24 PM
== END ==
LOC: MAMMO 10:18
PROVIDERS: ATTEND Internal Medicine
DX: Z12.31 Encounter for screening mammogram for malignant neoplasm of breast (principal); R91.8 Other nonspecific abnormal finding of lung field; M25.571 Pain in right ankle and joints of right foot
CPT/HCPCS: 71250; 77067

== ENCOUNTER → 2022-02-09 | Outpatient (CLI) | payer MEDICARE | LOC: MAMMO 08:29 | PROVIDERS: ATTEND Internal Medicine | DX: Z12.31 Encounter for screening mammogram for malignant neoplasm of breast (principal) | CPT/HCPCS: 77067 ==

== ENCOUNTER → 2023-04-24 | Outpatient (CLI) | payer MEDICARE | LOC: MAMMO 10:14 | PROVIDERS: ATTEND Internal Medicine | DX: Z12.31 Encounter for screening mammogram for malignant neoplasm of breast (principal); Z13.820 Encounter for screening for osteoporosis | CPT/HCPCS: 77067; 77080 ==